=== PATIENT | male | born 1990 ===

== ENCOUNTER 2021-02-28 11:54 | Emergency (ER) | payer OTHER ==
[~2021-02-28] VITALS: Ht 170.2 cm; Wt 62.6 kg
[2021-02-28] MEDS ORDERED: IVERMECTIN3 MG PO (16:44)
[2021-02-28] MEDS ORDERED: MULTI VITAMIN1 EACH PO (16:44)
== END 2021-02-28 17:21 | disposition home or self-care (01) ==
LOC: ER 11:54
DX: U07.1 COVID-19 (principal); E86.0 Dehydration; B34.9 Viral infection, unspecified